=== PATIENT | female | born 1995 | race Caucasian/White ===

== ENCOUNTER 2016-11-09 11:29 | Emergency (ER) | payer OTHER ==
[~2016-11-09 11:29] MED LIST: COL100 PO; MOT800 PO
[2016-11-09 13:04] LABS: BASOPHIL % 0.3 % (0-2); PLATELET COUNT 270 x10^3mcL (130-400)
[2016-11-09 13:05] LABS: RED CELL DISTRIBUTION WIDTH 16.6 % (11.5-14.5)
[2016-11-09 13:27] LABS: CALCIUM 8.8 mg/dL (8.5-10.1); CARBON DIOXIDE 31.3 mmol/L (21-32); CHLORIDE SERUM 104 mmol/L (98-107); CREATININE SERUM 0.7 mg/dL (0.6-1.0); GFR1 > 60 mL/min; GLUCOSE SERUM 97 mg/dL (74-106); POTASSIUM SERUM 4.1 mmol/L (3.5-5.1); SODIUM SERUM 140 mmol/L (136-145)
[2016-11-09 13:34] LABS: ALBUMIN 3.5 g/dL (3.4-5.0); ALKALINE PHOSPHATASE 83 U/L (46-116); ALT/SGPT 25 U/L (14-59); AMYLASE 29 U/L (25-115); AST/SGOT 31 U/L (15-37); BILIRUBIN TOTAL 1.2 mg/dL (0.20-1.00); LIPASE 68 IU/L (73-393); TOTAL PROTEIN, SERUM 7.6 g/dL (6.4-8.2)
[2016-11-09 14:24] VITALS: BP 108/74
== END 2016-11-09 14:24 | disposition home or self-care (01) ==
LOC: ED 11:29
PROVIDERS: Emergency Medicine
DX: N39.0 Urinary tract infection, site not specified (principal); K59.00 Constipation, unspecified
CPT/HCPCS: 36415; 83880; J1885